=== PATIENT | female | born 1950 | race American Indian/Alaskan Native ===

== ENCOUNTER 2016-10-29 15:51 | Outpatient (CLI) | payer MEDICAID | END 2016-10-29 15:52 | disposition home or self-care (01) | LOC: LABHHL 15:51 | PROVIDERS: ATTEND Internal Medicine Gastroenterology | DX: K21.9 Gastro-esophageal reflux disease without esophagitis (principal); K29.00 Acute gastritis without bleeding; R11.2 Nausea with vomiting, unspecified; K30 Functional dyspepsia; R19.7 Diarrhea, unspecified | CPT/HCPCS: 88305; 88342 ==

== ENCOUNTER 2017-08-17 14:40 | Outpatient (CLI) | payer MEDICAID ==
--- NOTE | 2017-08-18 14:15 | Mammography Report ---
BILATERAL DIGITAL SCREENING MAMMOGRAM with CAD: 08/17/17 14:40:00 CLINICAL: Routine screening. COMPARISON:08/16/16, 08/13/15 and 07/28/15 FINDINGS: The breasts are heterogeneously dense, which may obscure small masses. No mass, architectural distortion or suspicious calcifications. IMPRESSION: No mammographic evidence of malignancy. BI-RADS CATEGORY: 1 - - Negative RECOMMENDATION: Routine mammographic screening in one year. COMMENT: Patient follow-up letters are generated by our [employer] application.
== END 2017-08-17 14:41 | disposition home or self-care (01) ==
LOC: SPVWC 14:40
PROVIDERS: ATTEND Family Medicine
DX: Z12.31 Encounter for screening mammogram for malignant neoplasm of breast (principal)
CPT/HCPCS: 77067; G0202